=== PATIENT | male | born 1975 | race Caucasian/White ===

== ENCOUNTER 2020-10-23 10:33 | Emergency (ER) | payer OTHER ==
[~2020-10-23] VITALS: Ht 175.3 cm; Wt 93.0 kg
[~2020-10-23 10:33] MED LIST: CHERATUSSIN AC118 ML PO; ISENTRESS400 MG PO; TRUVADA 200 MG1 EACH PO; ZITHROMAX250 MG PO
[2020-10-23] MEDS ORDERED: METOPROLOL SUCC50 MG PO (10:47)
[2020-10-23] MEDS ORDERED: LISINOPRIL-HCT1 EACH PO (10:47)
[2020-10-23] MEDS ORDERED: TEMAZEPAM15 MG PO (10:48)
[2020-10-23] MEDS ORDERED: PERCOCET 7.5-31 EACH PO (12:04)
== END 2020-10-23 12:28 | disposition home or self-care (01) ==
LOC: ED 10:33
DX: S92.001A Unspecified fracture of right calcaneus, initial encounter for closed fracture (principal); V29.9XXA Motorcycle rider (driver) (passenger) injured in unspecified traffic accident, initial encounter; Z79.899 Other long term (current) drug therapy
CPT/HCPCS: 73610; 73630; 99283-25; A9270